=== PATIENT | female | born 1955 | race Caucasian/White ===

== ENCOUNTER 2020-10-16 11:06 | Observation (INO) ==
--- NOTE | 2020-10-16 11:12 | DR.WEAKNES ---
HPI Time Seen Time Seen by Provider: 10/16/20 11:10 HPI Comment HPI Comment: Patient presents with the complaint of slurred speech since about 10 AM today. She notes that she felt fine when she went to bed last night and when she awoke this morning. Notes that she was drinking coffee this morning and got choked and then felt that her speech was slurred. This lasted for a few minutes and then resolved spontaneously, but recurred and resolved 2 other times after. She notes that she feels that she is back to her baseline at this time. Timing Symptom Onset: Known Context Stroke Symptoms: Slurring PMH PMH Past Medical History: Hypertension Past Surgical History: Yes Surgical History: Hysterectomy, Ortho Surgery and Other Social History Do you use any recreational Drugs:: No ROS Review of Systems Constitutional: See HPI PE Vital Signs Vitals: Temperature 98.2 F Pulse Rate 98 Respiratory Rate 22 Blood Pressure 140/60 O2 Sat by Pulse Oximetry 98 General Limitations: No Limitations General Appearance: Alert and In No Apparent Distress Head Head Exam: Normal Inspection, Atraumatic and Normocephalic Eyes Eye exam: Normal Appearance, PERRL and EOMI ENT ENT Exam: Normal Exam Mouth Exam: Normal Inspection Throat Exam: Normal Inspection Neck Neck Exam: Normal Inspection, Full ROM and Trachea Midline Chest Chest Inspection: Normal Inspection and Symmetric Chest Wall Rise Respiratory Respiratory Exam: Normal Lung Sounds Bilat Respiratory Exam: Bilateral: Clear to Auscultation Cardiovascular Cardiovascular Exam: Regular Rate, Normal Rhythm and Normal Heart Sounds Abdominal Exam Abdominal Exam: Normal Inspection, Normal Bowel Sounds and Soft COURSE Reevaluation 1st: Resolved 2nd: Worsened (patient now notes that her tongue feels "heavy" again) Consultation Consultation Comments: Spoke with Dr. Keys who will admit the patient to his service. ROR Labs Reviewed Result Diagrams: 10/16/20 11:25 10/16/20 11:25 Laboratory: WBC 8.6 X10^3/uL (3.6-10.0) 10/16/20 11:25 RBC 4.36 X10^6/uL (3.5-5.4) 10/16/20 11:25 Hgb 12.7 g/dL (12.0-16.0) 10/16/20 11:25 Hct 38.9 % (36.0-47.0) 10/16/20 11:25 MCV 89.1 fL (80.0-100.0) 10/16/20 11:25 MCH 29.2 pg (27.0-34.0) 10/16/20 11:25 MCHC 32.8 g/dL (33.0-35.0) L 10/16/20 11:25 RDW 13.8 % (11.6-16.5) 10/16/20 11:25 Plt Count 263 X10^3/uL (150.0-450.0) 10/16/20 11:25 MPV 8.3 fL (7.4-11.0) 10/16/20 11:25 Neut % (Auto) 65.6 % (42.0-75.0) 10/16/20 11:25 Lymph % (Auto) 21.2 % (21.0-51.0) 10/16/20 11:25 [place] % (Auto) 8.7 % (0.0-13.0) 10/16/20 11:25 Eos % (Auto) 2.3 % (0.9-2.9) 10/16/20 11:25 Baso % (Auto) 2.2 % (0.2-1.0) H 10/16/20 11:25 Neut # (Auto) 5.7 x10^3/uL (2.2-4.8) H 10/16/20 11:25 Lymph # (Auto) 1.8 X10^3/uL (1.3-2.9) 10/16/20 11:25 [place] # (Auto) 0.8 x10^3/uL (0.3-0.8) 10/16/20 11:25 Eos # (Auto) 0.2 x10^3/uL (0.0-0.2) 10/16/20 11:25 Baso # (Auto) 0.2 X10^3/uL (0.0-0.1) H 10/16/20 11:25 Absolute Nucleated RBC 0.0 /100WBC 10/16/20 11:25 PT 12.4 SECONDS (11.8-14.3) 10/16/20 11:25 INR Target Range - 10/16/20 11:25 INR 0.95 (0.8-1.3) 10/16/20 11:25 APTT 25.7 SECONDS (22.9-36.5) 10/16/20 11:25 PTT Comment - 10/16/20 11:25 Fibrinogen 429 mg/dL (239-489) 10/16/20 11:25 Sodium 132 mmol/L (136-145) L 10/16/20 11:25 Corrected Sodium TNP 10/16/20 11:25 Potassium 4.0 mmol/L (3.5-5.1) 10/16/20 11:25 Chloride 98 mmol/L (98-107) 10/16/20 11:25 Carbon Dioxide 28.3 mmol/L (21-32) 10/16/20 11:25 BUN 15 mg/dL (7-18) 10/16/20 11:25 Creatinine 0.94 mg/dL (0.55-1.02) 10/16/20 11:25 Est GFR (MDRD) Af Amer > 60 (>60) 10/16/20 11:25 Est GFR (MDRD) Non-Af > 60 (>60) 10/16/20 11:25 Glucose 105 mg/dL (65-99) H 10/16/20 11:25 Calcium 10.0 mg/dL (8.5-10.1) 10/16/20 11:25 Corrected Calcium TNP 10/16/20 11:25 Total Bilirubin 0.30 mg/dL (0.2-1.0) 10/16/20 11:25 AST 17 Units/L (15-37) 10/16/20 11:25 ALT 27 Units/L (12-78) 10/16/20 11:25 Alkaline Phosphatase 72 Units/L (46-116) 10/16/20 11:25 Total Protein 7.1 g/dL (6.4-8.2) 10/16/20 11:25 Albumin 3.7 g/dL (3.4-5.0) 10/16/20 11:25 Globulin 3.4 g/dL (2.5-4.5) 10/16/20 11:25 Albumin/Globulin Ratio 1.1 Ratio (1.1-2.1) 10/16/20 11:25 Triglycerides 156 mg/dL (0-150) H 10/16/20 11:25 Cholesterol 149 mg/dL (0-200) 10/16/20 11:25 LDL Cholesterol, Calc 74 mg/dL (0-100) 10/16/20 11:25 HDL Cholesterol 44 mg/dL (40-60) 10/16/20 11:25 Cholesterol/HDL Ratio 3.4 (0.0-5.0) 10/16/20 11:25 Specimen Type Clean catch urine 10/16/20 12:02 Urine Color Yellow (YELLOW) 10/16/20 12:02 Urine Appearance Clear (CLEAR) 10/16/20 12:02 Urine pH 6.0 (5.0 - 8.0) 10/16/20 12:02 Ur Specific [place] 1.010 (1.000-1.030) 10/16/20 12:02 Urine Protein Negative (NEGATIVE) 10/16/20 12:02 Urine Glucose (UA) Negative (NEGATIVE) 10/16/20 12:02 Urine Ketones Negative (NEGATIVE) 10/16/20 12:02 Urine Occult Blood Negative (NEGATIVE) 10/16/20 12:02 Urine Nitrite Negative (NEGATIVE) 10/16/20 12:02 Urine Bilirubin Negative (NEGATIVE) 10/16/20 12:02 Urine Urobilinogen Normal (NORMAL) 10/16/20 12:02 Ur Leukocyte Esterase Negative (NEGATIVE) 10/16/20 12:02 SARS CoV-2 RNA Rapid WILLA Negative (NEGATIVE) 10/16/20 13:24 XRAY X-ray Results: HISTORY SLURRED SPEECH [address] without contrast COMPARISON None TECHNIQUE Axial imaging was performed from the vertex to the base of skull without intravenous contrast being administered. Sagittal and coronal reformations were generated. Automated exposure control techniques were used with this exam. FINDINGS Mild age related atrophic changes are present. The posterior fossa and supratentorial region demonstrate no evidence of intracranial hemorrhage or extracerebral fluid collections. Ventricles are symmetric in size and position with no mass effect seen. Patchy areas of low density are present in a periventricular white matter distribution, consistent with chronic small vessel ischemia. On the bone windows, no acute bony abnormality is identified. Mucosal thickening is present in the right maxillary sinus. Otherwise visualized aspect of the paranasal sinuses and mastoid air cells are clear. IMPRESSION 1. No acute intracranial abnormality is seen on this exam. 2. Mild age related atrophic change and scattered areas of chronic small vessel ischemia are incidental findings Electronically signed by: JASMIN KINCAID (Oct 16, 2020 11:28:06) EKG Rate: 90 Rhythm: NSR Opioid Opioid Risk Tool Total: 0 Total Score Risk Category: Low Risk Copyright: Andrei VILLEDA predicting aberrant behaviors Diagnosis Discharge Problem: Brain TIA
--- NOTE | 2020-10-16 11:29 | CT ---
HISTORYSLURRED SPEECH [address] without contrastCOMPARISONNoneTECHNIQUEAxial imaging was performed from the vertex to the base of skull without intravenous contrast being administered. Sagittal and coronal reformations were generated. Automated exposure control techniques were used with this exam.FINDINGSMild age related atrophic changes are present. The posterior fossa and supratentorial region demonstrate no evidence of intracranial hemorrhage or extracerebral fluid collections. Ventricles are symmetric in size and position with no mass effect seen. Patchy areas of low density are present in a periventricular white matter distribution, consistent with chronic small vessel ischemia. On the bone windows, no acute bony abnormality is identified. Mucosal thickening is present in the right maxillary sinus. Otherwise visualized aspect of the paranasal sinuses and mastoid air cells are clear.IMPRESSION1. No acute intracranial abnormality is seen on this exam.2. Mild age related atrophic change and scattered areas of chronic small vessel ischemia are incidental findingsElectronically signed by: JASMIN KINCAID (Oct 16, 2020 11:28:06)
[2020-10-16 11:38] LABS: BASOPHILS # (AUTO) 0.2 X10^3/uL (0.0-0.1); BASOPHILS % (AUTO) 2.2 % (0.2-1.0); EOSINOPHILS # (AUTO) 0.2 x10^3/uL (0.0-0.2); EOSINOPHILS % (AUTO) 2.3 % (0.9-2.9); HEMATOCRIT 38.9 % (36.0-47.0); HEMOGLOBIN 12.7 g/dL (12.0-16.0); LYMPHOCYTES # (AUTO) 1.8 X10^3/uL (1.3-2.9); LYMPHOCYTES % (AUTO) 21.2 % (21.0-51.0); MEAN CORPUSCULAR HEMOGLOBIN 29.2 pg (27.0-34.0); MEAN CORPUSCULAR HGB CONC 32.8 g/dL (33.0-35.0); MEAN CORPUSCULAR VOLUME 89.1 fL (80.0-100.0); MEAN PLATELET VOLUME 8.3 fL (7.4-11.0); MONOCYTES # (AUTO) 0.8 x10^3/uL (0.3-0.8); MONOCYTES % (AUTO) 8.7 % (0.0-13.0); NEUTROPHILS # (AUTO) 5.7 x10^3/uL (2.2-4.8); NEUTROPHILS % (AUTO) 65.6 % (42.0-75.0); PLATELET COUNT 263 X10^3/uL (150.0-450.0); RED BLOOD COUNT 4.36 X10^6/uL (3.5-5.4); RED CELL DISTRIBUTION WIDTH 13.8 % (11.6-16.5); WHITE BLOOD COUNT 8.6 X10^3/uL (3.6-10.0)
[2020-10-16 11:50] LABS: ALANINE AMINOTRANSFERASE 27 Units/L (12-78); ALBUMIN 3.7 g/dL (3.4-5.0); ALKALINE PHOSPHATASE 72 Units/L (46-116); ASPARTATE AMINO TRANSFERASE 17 Units/L (15-37); BLOOD UREA NITROGEN 15 mg/dL (7-18); CARBON DIOXIDE 28.3 mmol/L (21-32); CHLORIDE 98 mmol/L (98-107); CHOL/HDL RATIO 3.4 (0.0-5.0); CHOLESTEROL 149 mg/dL (0-200); CREATININE 0.94 mg/dL (0.55-1.02); HDL CHOLESTEROL 44 mg/dL (40-60); SODIUM 132 mmol/L (136-145); TOTAL PROTEIN 7.1 g/dL (6.4-8.2); TRIGLYCERIDES 156 mg/dL (0-150); eGFR NON BLACK RACES > 60 (>60)
[2020-10-16 12:09] LABS: BILIRUBIN,URINE NEGATIVE (NEGATIVE); BLOOD/HEMOGLOBIN,URINE NEGATIVE (NEGATIVE); GLUCOSE, URINE NEGATIVE (NEGATIVE); KETONES,URINE NEGATIVE (NEGATIVE); LEUKOCYTE ESTERASE ,URINE NEGATIVE (NEGATIVE); NITRITES,URINE NEGATIVE (NEGATIVE); PROTEIN,URINE NEGATIVE (NEGATIVE); UROBILINOGEN,URINE NORMAL (NORMAL)
[2020-10-16 12:11] LABS: APPEARANCE,URINE CLEAR (CLEAR); COLOR,URINE YELLOW (YELLOW)
[2020-10-16] MEDS ORDERED: ZAROXOLYN PO SCH (14:30)
[2020-10-16] MEDS ORDERED: LASIX PO PRN (14:30)
--- NOTE | 2020-10-16 15:11 | DR.H&P ---
H&P History & Physical for Day of: H&P Date: 10/16/20 Chief Complaint Chief Complaint: TIA Slurred speech Allergies Allergies Allergy/AdvReac Type Severity Reaction Status Date / Time codeine AdvReac Verified 10/17/20 05:52 History of Present Illness History of Present Illness: Patient is a 65 year old female past medical history Hypertension and Hyperlipidemia that presented with intermittent episodes of slurred speech that started 10 AM this morning. She denies any symptoms when she went to bed last night and when she woke up this morning. She reports drinking coffee this morning and got choked. It was then that she noticed her speech was slurred, which resolved spontaneously after a few minutes. However, she noticed it return two more times after, however resolved again while in the ED. Labs/ imaging: Wbc 8.6, Hgb 12.7, Plt 263, INR 0.95, UA negative, COVID-19 negative, Na 132, K 4.0, Cr 0.94, Glucose 105, AST 17, ALT 27, AlkP 72, Triglycerides 156, Cholesterol 149, LDL 74, HDL 44, CT head: 1. No acute intracranial abnormality is seen on this exam. 2. Mild age related atrophic change and scattered areas of chronic small vessel ischemia are incidental findings. Will admit patient for TIA and order frequent neuro checks, MRI brain, carotid U/S, and TTE. Optimize medications to decrease stroke risk. Will continue to monitor patient and follow up labs/imaging in the morning. Past Medical History Past Medical History: Dyslipidemia and Hypertension Past Surgical History Surgical History: Hysterectomy and Other Family History Family Medical History: Diabetes Mellitus and Hypertension Social History Does patient currently use any type of tobacco product: Yes Have you used tobacco products in the last 12 months: Yes Type of Tobacco Use: Cigarettes Medications Home Medications: MS Codeine [Codeine] Allergy (Mild, Verified 10/16/20 11:24) hives CONTINUE taking the following medications atorvastatin 40 mg PO QHS 10/16/20 [History] docusate sodium [Stool Softener] 100 mg PO BID PRN 10/16/20 [History] furosemide 40 mg PO QAM PRN 10/16/20 [History] ibuprofen 800 mg PO Q8H PRN 10/16/20 [History] lisinopril 10 mg PO DAILY 10/16/20 [History] metolazone 5 mg PO ONCE 10/16/20 [History] potassium chloride 10 meq PO DAILY 10/16/20 [History] pramipexole 1.5 mg PO BID 10/16/20 [History] spironolactone 25 mg PO DAILY 10/16/20 [History] Labs Result Diagrams: 10/17/20 05:45 10/17/20 05:45 Labs: Laboratory WBC 8.6 X10^3/uL (3.6-10.0) 10/16/20 11:25 RBC 4.36 X10^6/uL (3.5-5.4) 10/16/20 11:25 Hgb 12.7 g/dL (12.0-16.0) 10/16/20 11:25 Hct 38.9 % (36.0-47.0) 10/16/20 11:25 MCV 89.1 fL (80.0-100.0) 10/16/20 11:25 MCH 29.2 pg (27.0-34.0) 10/16/20 11:25 MCHC 32.8 g/dL (33.0-35.0) L 10/16/20 11:25 RDW 13.8 % (11.6-16.5) 10/16/20 11:25 Plt Count 263 X10^3/uL (150.0-450.0) 10/16/20 11:25 MPV 8.3 fL (7.4-11.0) 10/16/20 11:25 Neut % (Auto) 65.6 % (42.0-75.0) 10/16/20 11:25 Lymph % (Auto) 21.2 % (21.0-51.0) 10/16/20 11:25 [place] % (Auto) 8.7 % (0.0-13.0) 10/16/20 11:25 Eos % (Auto) 2.3 % (0.9-2.9) 10/16/20 11:25 Baso % (Auto) 2.2 % (0.2-1.0) H 10/16/20 11:25 Neut # (Auto) 5.7 x10^3/uL (2.2-4.8) H 10/16/20 11:25 Lymph # (Auto) 1.8 X10^3/uL (1.3-2.9) 10/16/20 11:25 [place] # (Auto) 0.8 x10^3/uL (0.3-0.8) 10/16/20 11:25 Eos # (Auto) 0.2 x10^3/uL (0.0-0.2) 10/16/20 11:25 Baso # (Auto) 0.2 X10^3/uL (0.0-0.1) H 10/16/20 11:25 Absolute Nucleated RBC 0.0 /100WBC 10/16/20 11:25 PT 12.4 SECONDS (11.8-14.3) 10/16/20 11:25 INR Target Range - 10/16/20 11:25 INR 0.95 (0.8-1.3) 10/16/20 11:25 APTT 25.7 SECONDS (22.9-36.5) 10/16/20 11:25 PTT Comment - 10/16/20 11:25 Fibrinogen 429 mg/dL (239-489) 10/16/20 11:25 Sodium 132 mmol/L (136-145) L 10/16/20 11:25 Corrected Sodium TNP 10/16/20 11:25 Potassium 4.0 mmol/L (3.5-5.1) 10/16/20 11:25 Chloride 98 mmol/L (98-107) 10/16/20 11:25 Carbon Dioxide 28.3 mmol/L (21-32) 10/16/20 11:25 BUN 15 mg/dL (7-18) 10/16/20 11:25 Creatinine 0.94 mg/dL (0.55-1.02) 10/16/20 11:25 Est GFR (MDRD) Af Amer > 60 (>60) 10/16/20 11:25 Est GFR (MDRD) Non-Af > 60 (>60) 10/16/20 11:25 Glucose 105 mg/dL (65-99) H 10/16/20 11:25 Calcium 10.0 mg/dL (8.5-10.1) 10/16/20 11:25 Corrected Calcium TNP 10/16/20 11:25 Total Bilirubin 0.30 mg/dL (0.2-1.0) 10/16/20 11:25 AST 17 Units/L (15-37) 10/16/20 11:25 ALT 27 Units/L (12-78) 10/16/20 11:25 Alkaline Phosphatase 72 Units/L (46-116) 10/16/20 11:25 Total Protein 7.1 g/dL (6.4-8.2) 10/16/20 11:25 Albumin 3.7 g/dL (3.4-5.0) 10/16/20 11:25 Globulin 3.4 g/dL (2.5-4.5) 10/16/20 11:25 Albumin/Globulin Ratio 1.1 Ratio (1.1-2.1) 10/16/20 11:25 Triglycerides 156 mg/dL (0-150) H 10/16/20 11:25 Cholesterol 149 mg/dL (0-200) 10/16/20 11:25 LDL Cholesterol, Calc 74 mg/dL (0-100) 10/16/20 11:25 HDL Cholesterol 44 mg/dL (40-60) 10/16/20 11:25 Cholesterol/HDL Ratio 3.4 (0.0-5.0) 10/16/20 11:25 Specimen Type Clean catch urine 10/16/20 12:02 Urine Color Yellow (YELLOW) 10/16/20 12:02 Urine Appearance Clear (CLEAR) 10/16/20 12:02 Urine pH 6.0 (5.0 - 8.0) 10/16/20 12:02 Ur Specific [place] 1.010 (1.000-1.030) 10/16/20 12:02 Urine Protein Negative (NEGATIVE) 10/16/20 12:02 Urine Glucose (UA) Negative (NEGATIVE) 10/16/20 12:02 Urine Ketones Negative (NEGATIVE) 10/16/20 12:02 Urine Occult Blood Negative (NEGATIVE) 10/16/20 12:02 Urine Nitrite Negative (NEGATIVE) 10/16/20 12:02 Urine Bilirubin Negative (NEGATIVE) 10/16/20 12:02 Urine Urobilinogen Normal (NORMAL) 10/16/20 12:02 Ur Leukocyte Esterase Negative (NEGATIVE) 10/16/20 12:02 SARS CoV-2 RNA Rapid WILLA Negative (NEGATIVE) 10/16/20 13:24 Review of Systems Constitutional: No Symptoms Reported Eyes: No Symptoms Reported ENT: No Symptoms Reported Respiratory: No Symptoms Reported Cardiovascular: No Symptoms Reported Gastrointestinal: No Symptoms Reported Genitourinary: No Symptoms Reported Musculoskeletal: No Symptoms Reported Skin: No Symptoms Reported Neurological: Change in Speech Physical Exam Vital Signs: Temperature 97.6 F Pulse Rate 96 Respiratory Rate 20 Blood Pressure 112/53 O2 Sat by Pulse Oximetry 98 Oriented: Normal Eyes: Normal Ear: Normal Nose: Normal Throat: Normal Respiratory: Clear Throughout Cardiovascular: Normal : Normal Auscultation: Bowel Sounds: Normal Palpation: Normal Tenderness: Normal Skin: Normal Musculoskeletal: Normal Psychiatric: Normal Mood Description: Calm and Appropriate Affect: Normal Speech Pattern: Clear and Appropriate Assessment/Plan (1) Brain TIA: Status: Acute Plan: Neuro checks F/u MRI brain, Carotid U/S, TTE Review H&P Reviewed: Yes Patient was examined?: Yes
--- NOTE | 2020-10-16 16:07 | MRI ---
HISTORYTIA; 19CC MULTIHANCESTUDYBRAIN W W/O CONCOMPARISONNoneTECHNIQUEMultiplanar multi sequences images through the brain were performed without intravenous contrast 19 cc of MultiHance was administered intravenously.FINDINGSThe ventricles are normal in size and symmetric. There is no evidence of an acute infarct. There are no focal areas of restricted diffusion. There is normal midline anatomy. No sellar masses. The cervicocranial junction is unremarkable. No nasopharyngeal masses. There are small mucous retention cysts in the maxillary sinuses.The main arterial and venous flow voids are present. The mastoid cells are clear. The temporomandibular condyles are intact. There is no abnormal intraparenchymal susceptibility artifact. No abnormal signal in the calvarium.FLAIR images demonstrate multiple scattered areas of high signal in the subcortical white matter more prominent in the left frontal lobe along the convexity. There is also mild patchy periventricular areas of high signal. After the administration of contrast. There is no evidence of abnormal intraparenchymal or leptomeningeal enhancement. There is symmetry of the cavernous sinus. No orbital masses. No abnormal signal in the brainstem or in the cerebellum.IMPRESSIONNo evidence of acute intracranial abnormalities. No acute infarctMild periventricular with multiple scattered subcortical areas of high signal in the white matter without evidence of abnormal enhancementDifferential include: Small vessel disease, vasculitis, Lyme disease, demyelinization is not excluded. Clinical correlation is recommended.Small mucous retention cysts in the maxillary sinuses.Electronically signed by: Carolyn June (Oct 16, 2020 16:05:25)
--- NOTE | 2020-10-16 16:59 | VAS ---
HISTORYacute slurred speechSTUDYCAROTID USCOMPARISONNone and no worksheet.TECHNIQUEMultiple webster scale and color flow Doppler images of the right and left carotid arterial system were obtained. The vertebral arterial system was evaluated as well.FINDINGSNormal color flow Doppler is seen throughout the right and left carotid arterial system on the left waveforms are normal peak systolic velocities are in the normal range maximal 76 cm/second in the distal left ICA. On the Doppler images no high-grade stenoses are observed. Antegrade flow is seen in the left vertebral artery.On the right on images and 2D images no significant plaquing or stenoses are observed. Waveforms are normal. Peak systolic velocities are in the normal range maximal 90 cm/second in the distal right ICA. Antegrade flow is seen in the right vertebral artery.. No hemodynamically significant stenosis is seen based on velocity criteria.IMPRESSIONNo hemodynamically significant stenosis identified by real-time scanning i.e. images waveforms peak systolic velocities and systolic velocity ratios. Antegrade flow is seen in both vertebral arteries.Electronically signed by: JACKIE AGUILAR (Oct 16, 2020 16:58:18)
[2020-10-16 18:07] VITALS: BMI 31.6
[2020-10-16] MEDS: MIRAPEX TAB 1 MG PO SCH (21:00)
[2020-10-16] MEDS: LIPITOR TAB 80 MG PO SCH (21:00)
[2020-10-16] MEDS ORDERED: LIPITOR TAB 20 MG PO SCH (21:00)
[2020-10-17 06:26] LABS: BASOPHILS # (AUTO) 0.1 X10^3/uL (0.0-0.1); EOSINOPHILS # (AUTO) 0.2 x10^3/uL (0.0-0.2); EOSINOPHILS % (AUTO) 2.9 % (0.9-2.9); HEMATOCRIT 35.6 % (36.0-47.0); LYMPHOCYTES # (AUTO) 1.6 X10^3/uL (1.3-2.9); LYMPHOCYTES % (AUTO) 22.8 % (21.0-51.0); MEAN CORPUSCULAR HEMOGLOBIN 29.6 pg (27.0-34.0); MEAN CORPUSCULAR HGB CONC 33.6 g/dL (33.0-35.0); MEAN PLATELET VOLUME 8.4 fL (7.4-11.0); MONOCYTES # (AUTO) 0.6 x10^3/uL (0.3-0.8); MONOCYTES % (AUTO) 8.1 % (0.0-13.0); NEUTROPHILS # (AUTO) 4.7 x10^3/uL (2.2-4.8); NEUTROPHILS % (AUTO) 65.2 % (42.0-75.0); PLATELET COUNT 228 X10^3/uL (150.0-450.0); RED BLOOD COUNT 4.04 X10^6/uL (3.5-5.4); RED CELL DISTRIBUTION WIDTH 13.6 % (11.6-16.5); WHITE BLOOD COUNT 7.2 X10^3/uL (3.6-10.0)
[2020-10-17 06:46] LABS: ALANINE AMINOTRANSFERASE 22 Units/L (12-78); ALBUMIN 3.3 g/dL (3.4-5.0); ALKALINE PHOSPHATASE 65 Units/L (46-116); ASPARTATE AMINO TRANSFERASE 16 Units/L (15-37); BLOOD UREA NITROGEN 13 mg/dL (7-18); CALCIUM 9.3 mg/dL (8.5-10.1); CARBON DIOXIDE 25.1 mmol/L (21-32); CHLORIDE 101 mmol/L (98-107); COR CA(FOR HYPOALB) 9.9 mg/dL (8.5-10.1); COR NA(FOR HYPERGLY) 138 mmol/L (136-145); CREATININE 0.92 mg/dL (0.55-1.02); SODIUM 136 mmol/L (136-145); TOTAL PROTEIN 6.4 g/dL (6.4-8.2); eGFR NON BLACK RACES > 60 (>60)
[2020-10-17] MEDS ORDERED: KLOR-CON PO PRN (06:49)
[2020-10-17] MEDS ORDERED: POTASSIUM CHL 60 MEQ/NS 0.45% 500 ML IV PRN (06:49)
[2020-10-17] MEDS ORDERED: POTASSIUM CHLORIDE LIQ 20 MEQ UDC PO PRN (06:49)
[2020-10-17] MEDS ORDERED: POTASSIUM CHL 40 MEQ/NS 0.45% 500 ML IV PRN (06:49)
[2020-10-17] MEDS ORDERED: K-RIDER 10 MEQ/NS 100 ML 10 MEQ/100 ML BAG IV PRN (06:49)
[2020-10-17] MEDS ORDERED: MICRO K EXTEN CAP 10 MEQ PO PRN (06:49)
[2020-10-17] MEDS ORDERED: K-DUR TAB 20 MEQ PO PRN (06:49)
[2020-10-17 06:52] LABS: BAND NEUTROPHILS % 2 % (0-10); PLATELET MORPHOLOGY COMMENT NORMAL (NORMAL)
[2020-10-17] MEDS: ZESTRIL TAB 5 MG PO SCH (08:15)
[2020-10-17] MEDS: ALDACTONE TAB 25 MG PO SCH (08:15)
[2020-10-17] MEDS: MIRAPEX TAB 1 MG PO SCH ×2 (08:15→20:59)
--- NOTE | 2020-10-17 08:36 | PCM.PROG ---
Progress Note Progress Note for Day of Date of Exam: 10/17/20 Subjective Subjective: Patient is a 65 year old female past medical history Hypertension and Hyperlipidemia admitted for TIA. This morning she reports still having some intermittent episodes of slurred speech. No other concerns. Labs/ imaging: Wbc 7.2, Hgb 12, Plt 228, ESR 18, CRP 1.40, Na 136, K 3.4, Cr 0.92, Glucose 165, AST 16, ALT 22, AlkP 65, Total bilirubin 0.20, TSH:2.94. Yesterday MRI revealed: No evidence of acute intracranial abnormalities. No acute infarct. Mild periventricular with multiple scattered subcortical areas of high signal in the white matter without evidence of abnormal enhancement. Differential include: Small vessel disease, vasculitis, Lyme disease, demyelinization is not excluded. Clinical correlation is recommended. Small mucous retention cysts in the maxillary sinuses. Carotid U/S: No hemodynamically significant stenosis identified by real-time scanning i.e. images waveforms peak systolic velocities and systolic velocity ratios. Antegrade flow is seen in both vertebral arteries. Echo EF of 57%. Discussed with patient results of imaging including no evidence of acute brain infarct or carotid artery stenosis. There appears to be some scattered areas of abnormal enhancement on MRI that will need to be followed up with neurology outpatient. Case management to set up referral. On exam patient with no focal deficits. Will monitor today with neuro checks, medications opti mized to decrease stroke risk. Will give IV solumedrol if inflammatory condition is involved, otherwise continue with current treatment plan. Continue to monitor and follow up labs/imaging in the morning. Past Medical Family Social History Past Med/Fam/Surg Hx: No changes since H&P Allergies: Allergies codeine Adverse Reaction (Verified 10/17/20 05:52) Review of Systems ROS: No change since H&P Vital Signs and I&O's Vital Signs: Temperature 98.0 F Pulse Rate [Bilateral Radial] 98 Pulse Rate 96 Respiratory Rate 18 Blood Pressure [Right Arm] 136/87 Blood Pressure 112/53 O2 Sat by Pulse Oximetry 93 Intake and Output: Intake & Output 10/14/20 10/15/20 10/16/20 10/17/20 23:59 23:59 23:59 23:59 Intake Total 890 / 890 250 / 250 Balance 890 / 890 250 / 250 Physical Exam Oriented: Normal Eyes: Normal Ear: Normal Nose: Normal Throat: Normal Respiratory: Normal Cardiovascular: Normal : Normal Auscultation: Bowel Sounds: Normal Tenderness: Normal Skin: Normal Musculoskeletal: Normal Psychiatric: Normal Mood Description: Calm Affect: Normal Speech Pattern: Clear Laboratory and Diagnostics Result Diagrams: 10/17/20 05:45 10/17/20 05:45 Labs: Laboratory WBC 7.2 X10^3/uL (3.6-10.0) 10/17/20 05:45 RBC 4.04 X10^6/uL (3.5-5.4) 10/17/20 05:45 Hgb 12.0 g/dL (12.0-16.0) 10/17/20 05:45 Hct 35.6 % (36.0-47.0) L 10/17/20 05:45 MCV 88.0 fL (80.0-100.0) 10/17/20 05:45 MCH 29.6 pg (27.0-34.0) 10/17/20 05:45 MCHC 33.6 g/dL (33.0-35.0) 10/17/20 05:45 RDW 13.6 % (11.6-16.5) 10/17/20 05:45 Plt Count 228 X10^3/uL (150.0-450.0) 10/17/20 05:45 Plt Count Comment Adequate (ADEQUATE) 10/17/20 05:45 MPV 8.4 fL (7.4-11.0) 10/17/20 05:45 Neut % (Auto) 65.2 % (42.0-75.0) 10/17/20 05:45 Lymph % (Auto) 22.8 % (21.0-51.0) 10/17/20 05:45 [place] % (Auto) 8.1 % (0.0-13.0) 10/17/20 05:45 Eos % (Auto) 2.9 % (0.9-2.9) 10/17/20 05:45 Baso % (Auto) 1.0 % (0.2-1.0) 10/17/20 05:45 Neut # (Auto) 4.7 x10^3/uL (2.2-4.8) 10/17/20 05:45 Lymph # (Auto) 1.6 X10^3/uL (1.3-2.9) 10/17/20 05:45 [place] # (Auto) 0.6 x10^3/uL (0.3-0.8) 10/17/20 05:45 Eos # (Auto) 0.2 x10^3/uL (0.0-0.2) 10/17/20 05:45 Baso # (Auto) 0.1 X10^3/uL (0.0-0.1) 10/17/20 05:45 Absolute Nucleated RBC 0.0 /100WBC 10/17/20 05:45 Total Counted 100 10/17/20 05:45 Neutrophils % (Manual) 70 % (39-76) 10/17/20 05:45 Band Neutrophils % 2 % (0-10) 10/17/20 05:45 Lymphocytes % (Manual) 17 % (13-43) 10/17/20 05:45 Monocytes % (Manual) 9 % (4-9) 10/17/20 05:45 Eosinophils % (Manual) 2 % (0-6) 10/17/20 05:45 Plt Morphology Comment Normal (NORMAL) 10/17/20 05:45 RBC Morphology Normal (NORMAL) 10/17/20 05:45 ESR 18 MM/HOUR (0-20) 10/16/20 16:44 PT 12.4 SECONDS (11.8-14.3) 10/16/20 11:25 INR Target Range - 10/16/20 11:25 INR 0.95 (0.8-1.3) 10/16/20 11:25 APTT 25.7 SECONDS (22.9-36.5) 10/16/20 11:25 PTT Comment - 10/16/20 11:25 Fibrinogen 429 mg/dL (239-489) 10/16/20 11:25 Sodium 136 mmol/L (136-145) 10/17/20 05:45 Corrected Sodium 138 mmol/L (136-145) 10/17/20 05:45 Potassium 3.4 mmol/L (3.5-5.1) L 10/17/20 05:45 Chloride 101 mmol/L (98-107) 10/17/20 05:45 Carbon Dioxide 25.1 mmol/L (21-32) 10/17/20 05:45 BUN 13 mg/dL (7-18) 10/17/20 05:45 Creatinine 0.92 mg/dL (0.55-1.02) 10/17/20 05:45 Est GFR (MDRD) Af Amer > 60 (>60) 10/17/20 05:45 Est GFR (MDRD) Non-Af > 60 (>60) 10/17/20 05:45 Glucose 165 mg/dL (65-99) H 10/17/20 05:45 Calcium 9.3 mg/dL (8.5-10.1) 10/17/20 05:45 Corrected Calcium 9.9 mg/dL (8.5-10.1) 10/17/20 05:45 Magnesium 2.0 mg/dL (1.7-2.9) 10/17/20 05:45 Total Bilirubin 0.20 mg/dL (0.2-1.0) 10/17/20 05:45 AST 16 Units/L (15-37) 10/17/20 05:45 ALT 22 Units/L (12-78) 10/17/20 05:45 Alkaline Phosphatase 65 Units/L (46-116) 10/17/20 05:45 C-Reactive Protein 1.40 mg/L (0-3.0) 10/16/20 16:44 Total Protein 6.4 g/dL (6.4-8.2) 10/17/20 05:45 Albumin 3.3 g/dL (3.4-5.0) L 10/17/20 05:45 Globulin 3.1 g/dL (2.5-4.5) 10/17/20 05:45 Albumin/Globulin Ratio 1.1 Ratio (1.1-2.1) 10/17/20 05:45 Triglycerides 156 mg/dL (0-150) H 10/16/20 11:25 Cholesterol 149 mg/dL (0-200) 10/16/20 11:25 LDL Cholesterol, Calc 74 mg/dL (0-100) 10/16/20 11:25 HDL Cholesterol 44 mg/dL (40-60) 10/16/20 11:25 Cholesterol/HDL Ratio 3.4 (0.0-5.0) 10/16/20 11:25 Specimen Type Clean catch urine 10/16/20 12:02 Urine Color Yellow (YELLOW) 10/16/20 12:02 Urine Appearance Clear (CLEAR) 10/16/20 12:02 Urine pH 6.0 (5.0 - 8.0) 10/16/20 12:02 Ur Specific [place] 1.010 (1.000-1.030) 10/16/20 12:02 Urine Protein Negative (NEGATIVE) 10/16/20 12:02 Urine Glucose (UA) Negative (NEGATIVE) 10/16/20 12:02 Urine Ketones Negative (NEGATIVE) 10/16/20 12:02 Urine Occult Blood Negative (NEGATIVE) 10/16/20 12:02 Urine Nitrite Negative (NEGATIVE) 10/16/20 12:02 Urine Bilirubin Negative (NEGATIVE) 10/16/20 12:02 Urine Urobilinogen Normal (NORMAL) 10/16/20 12:02 Ur Leukocyte Esterase Negative (NEGATIVE) 10/16/20 12:02 SARS CoV-2 RNA Rapid WILLA Negative (NEGATIVE) 10/16/20 13:24 Plan (1) Brain TIA: Status: Acute Plan: Neuro checks CT and MRI negative for acute abnormalities
[2020-10-17] MEDS: SOLU-Medrol 125 MG VIAL IVP SCH ×2 (09:43→15:08)
[2020-10-17] MEDS: PEPCID TAB 20 MG PO SCH ×2 (15:08→21:00)
[2020-10-17] MEDS: ASPIRIN EC 81 MG PO SCH (15:08)
[2020-10-17] MEDS ORDERED: HumuLIN R SUBCUT PRN (16:45)
[2020-10-17] MEDS: SNACK - Diabetic Appropriate PO SCH (19:37)
[2020-10-17] MEDS: LIPITOR TAB 80 MG PO SCH (21:00)
[2020-10-18 06:09] LABS: BASOPHILS % (AUTO) 0.1 % (0.2-1.0); HEMATOCRIT 36.3 % (36.0-47.0); HEMOGLOBIN 11.8 g/dL (12.0-16.0); LYMPHOCYTES # (AUTO) 0.9 X10^3/uL (1.3-2.9); LYMPHOCYTES % (AUTO) 5.3 % (21.0-51.0); MEAN CORPUSCULAR HGB CONC 32.5 g/dL (33.0-35.0); MEAN CORPUSCULAR VOLUME 89.4 fL (80.0-100.0); MEAN PLATELET VOLUME 8.5 fL (7.4-11.0); MONOCYTES # (AUTO) 0.9 x10^3/uL (0.3-0.8); MONOCYTES % (AUTO) 5.2 % (0.0-13.0); NEUTROPHILS # (AUTO) 15.7 x10^3/uL (2.2-4.8); NEUTROPHILS % (AUTO) 89.4 % (42.0-75.0); PLATELET COUNT 256 X10^3/uL (150.0-450.0); RED BLOOD COUNT 4.06 X10^6/uL (3.5-5.4); RED CELL DISTRIBUTION WIDTH 13.7 % (11.6-16.5); WHITE BLOOD COUNT 17.6 X10^3/uL (3.6-10.0)
[2020-10-18 06:24] LABS: ALANINE AMINOTRANSFERASE 27 Units/L (12-78); ALBUMIN 3.2 g/dL (3.4-5.0); ALKALINE PHOSPHATASE 67 Units/L (46-116); ASPARTATE AMINO TRANSFERASE 11 Units/L (15-37); BLOOD UREA NITROGEN 13 mg/dL (7-18); CALCIUM 9.3 mg/dL (8.5-10.1); CARBON DIOXIDE 25.5 mmol/L (21-32); CHLORIDE 104 mmol/L (98-107); COR CA(FOR HYPOALB) 9.9 mg/dL (8.5-10.1); COR NA(FOR HYPERGLY) 138 mmol/L (136-145); CREATININE 0.93 mg/dL (0.55-1.02); SODIUM 137 mmol/L (136-145); TOTAL PROTEIN 6.4 g/dL (6.4-8.2); eGFR NON BLACK RACES > 60 (>60)
[2020-10-18] MEDS: ALDACTONE TAB 25 MG PO SCH (08:34)
[2020-10-18] MEDS: MIRAPEX TAB 1 MG PO SCH ×2 (08:35→20:26)
[2020-10-18] MEDS: ASPIRIN EC 81 MG PO SCH (08:35)
[2020-10-18] MEDS: PEPCID TAB 20 MG PO SCH ×2 (08:36→20:27)
[2020-10-18] MEDS: ZESTRIL TAB 5 MG PO SCH (08:36)
--- NOTE | 2020-10-18 10:05 | W.DIS.FURT ---
Summary of Discharge Discharge Summary of Date Date of Exam: 10/18/20 Admission Date Date of Admission: 10/16/20 Admission Diagnosis Patient Problems (Updated 10/16/20 @ 13:28 by Antonella Sparks) Brain TIA (Acute) G45.9 Hospital Course: Pt is a 65 year old female past medical history Hypertension and Hyperlipidemia admitted for TIA on 10/16. On that morning she was drinking coffee and choked, then noticed having some slurred speech. When she got to the ED symptoms had resolved and CT head negative. Then throughout the day she continued to have intermittent slurring of speech. She had MRI that revealed: No evidence of acute intracranial abnormalities. No acute infarct. Mild periventricular with multiple scattered subcortical areas of high signal in the white matter without evidence of abnormal enhancement. Carotid U/S: No hemodynamically significant stenosis. Echo EF of 57%. However, she continues to have slurred speech this morning, as well deficits with coordination of her left arm and hand. Discussed with patient will need to transfer due to continued neurological symptoms for neurological evaluation. [facility]. Vitals and labs wnl, except for leukocytosis this morning that is steroid induced after receiving solumedrol yesterday. Otherwise no fevers, chills, or other signs of infection. Pt in stable condition to be transferred to higher level of care facility. Vital Signs: Vital Signs (72 hours) 10/16/20 11:12 10/16/20 11:14 10/16/20 11:20 Temperature 98.2 F Pulse Rate 99 H 96 H Pulse Rate [Bilateral Radial] Respiratory Rate 31 H 24 Blood Pressure 116/60 Blood Pressure [Right Arm] O2 Sat by Pulse Oximetry 95 95 94 L 10/16/20 11:21 10/16/20 11:31 10/16/20 11:45 Temperature Pulse Rate 94 H 94 H Pulse Rate [Bilateral Radial] Respiratory Rate 25 H 26 H Blood Pressure 140/60 Blood Pressure [Right Arm] O2 Sat by Pulse Oximetry 94 L 10/16/20 12:15 10/16/20 13:00 10/16/20 14:00 Temperature 97.6 F Pulse Rate 90 98 H 96 H Pulse Rate [Bilateral Radial] Respiratory Rate 16 22 20 Blood Pressure 140/62 140/60 112/53 Blood Pressure [Right Arm] O2 Sat by Pulse Oximetry 96 98 10/16/20 15:30 10/16/20 20:00 10/17/20 00:00 Temperature 97.7 F 97.8 F 97.9 F Pulse Rate Pulse Rate [Bilateral Radial] 97 H 92 H 93 H Respiratory Rate 20 20 20 Blood Pressure Blood Pressure [Right Arm] 145/79 134/74 123/67 O2 Sat by Pulse Oximetry 97 95 92 L 10/17/20 04:00 10/17/20 07:58 10/17/20 11:26 Temperature 98.1 F 98.0 F 97.9 F Pulse Rate Pulse Rate [Bilateral Radial] 101 H 98 H 101 H Respiratory Rate 20 18 22 Blood Pressure Blood Pressure [Right Arm] 123/65 136/87 127/75 O2 Sat by Pulse Oximetry 92 L 93 L 93 L 10/17/20 15:57 10/17/20 20:00 10/18/20 00:00 Temperature 98.0 F 98.2 F 97.6 F Pulse Rate Pulse Rate [Bilateral Radial] 103 H 109 H 96 H Respiratory Rate 18 18 20 Blood Pressure Blood Pressure [Right Arm] 116/71 118/64 106/60 O2 Sat by Pulse Oximetry 95 94 L 95 10/18/20 04:00 10/18/20 08:00 Temperature 98.2 F 97.7 F Pulse Rate Pulse Rate [Bilateral Radial] 102 H 102 H Respiratory Rate 28 H 20 Blood Pressure Blood Pressure [Right Arm] 114/66 134/62 O2 Sat by Pulse Oximetry 93 L 96 Labs: Laboratory Last Values WBC 17.6 X10^3/uL (3.6-10.0) H D 10/18/20 05:25 RBC 4.06 X10^6/uL (3.5-5.4) 10/18/20 05:25 Hgb 11.8 g/dL (12.0-16.0) L 10/18/20 05:25 Hct 36.3 % (36.0-47.0) 10/18/20 05:25 MCV 89.4 fL (80.0-100.0) 10/18/20 05:25 MCH 29.0 pg (27.0-34.0) 10/18/20 05:25 MCHC 32.5 g/dL (33.0-35.0) L 10/18/20 05:25 RDW 13.7 % (11.6-16.5) 10/18/20 05:25 Plt Count 256 X10^3/uL (150.0-450.0) 10/18/20 05:25 Plt Count Comment Adequate (ADEQUATE) 10/17/20 05:45 MPV 8.5 fL (7.4-11.0) 10/18/20 05:25 Neut % (Auto) 89.4 % (42.0-75.0) H 10/18/20 05:25 Lymph % (Auto) 5.3 % (21.0-51.0) L 10/18/20 05:25 [place] % (Auto) 5.2 % (0.0-13.0) 10/18/20 05:25 Eos % (Auto) 0.0 % (0.9-2.9) L 10/18/20 05:25 Baso % (Auto) 0.1 % (0.2-1.0) L 10/18/20 05:25 Neut # (Auto) 15.7 x10^3/uL (2.2-4.8) H 10/18/20 05:25 Lymph # (Auto) 0.9 X10^3/uL (1.3-2.9) L 10/18/20 05:25 [place] # (Auto) 0.9 x10^3/uL (0.3-0.8) H 10/18/20 05:25 Eos # (Auto) 0.0 x10^3/uL (0.0-0.2) 10/18/20 05:25 Baso # (Auto) 0.0 X10^3/uL (0.0-0.1) 10/18/20 05:25 Absolute Nucleated RBC 0.0 /100WBC 10/18/20 05:25 Total Counted 100 10/17/20 05:45 Neutrophils % (Manual) 70 % (39-76) 10/17/20 05:45 Band Neutrophils % 2 % (0-10) 10/17/20 05:45 Lymphocytes % (Manual) 17 % (13-43) 10/17/20 05:45 Monocytes % (Manual) 9 % (4-9) 10/17/20 05:45 Eosinophils % (Manual) 2 % (0-6) 10/17/20 05:45 Plt Morphology Comment Normal (NORMAL) 10/17/20 05:45 RBC Morphology Normal (NORMAL) 10/17/20 05:45 ESR 18 MM/HOUR (0-20) 10/16/20 16:44 PT 12.4 SECONDS (11.8-14.3) 10/16/20 11:25 INR Target Range - 10/16/20 11:25 INR 0.95 (0.8-1.3) 10/16/20 11:25 APTT 25.7 SECONDS (22.9-36.5) 10/16/20 11:25 PTT Comment - 10/16/20 11:25 Fibrinogen 429 mg/dL (239-489) 10/16/20 11:25 Sodium 137 mmol/L (136-145) 10/18/20 05:25 Corrected Sodium 138 mmol/L (136-145) 10/18/20 05:25 Potassium 4.1 mmol/L (3.5-5.1) 10/18/20 05:25 Chloride 104 mmol/L (98-107) 10/18/20 05:25 Carbon Dioxide 25.5 mmol/L (21-32) 10/18/20 05:25 BUN 13 mg/dL (7-18) 10/18/20 05:25 Creatinine 0.93 mg/dL (0.55-1.02) 10/18/20 05:25 Est GFR (MDRD) Af Amer > 60 (>60) 10/18/20 05:25 Est GFR (MDRD) Non-Af > 60 (>60) 10/18/20 05:25 Glucose 149 mg/dL (65-99) H 10/18/20 05:25 POC Glucose (mg/dL) 145 mg/dL (65-99) H 10/18/20 05:14 Calcium 9.3 mg/dL (8.5-10.1) 10/18/20 05:25 Corrected Calcium 9.9 mg/dL (8.5-10.1) 10/18/20 05:25 Magnesium 2.0 mg/dL (1.7-2.9) 10/17/20 05:45 Total Bilirubin 0.20 mg/dL (0.2-1.0) 10/18/20 05:25 AST 11 Units/L (15-37) L 10/18/20 05:25 ALT 27 Units/L (12-78) 10/18/20 05:25 Alkaline Phosphatase 67 Units/L (46-116) 10/18/20 05:25 C-Reactive Protein 1.40 mg/L (0-3.0) 10/16/20 16:44 Total Protein 6.4 g/dL (6.4-8.2) 10/18/20 05:25 Albumin 3.2 g/dL (3.4-5.0) L 10/18/20 05:25 Globulin 3.2 g/dL (2.5-4.5) 10/18/20 05:25 Albumin/Globulin Ratio 1.0 Ratio (1.1-2.1) L 10/18/20 05:25 Triglycerides 156 mg/dL (0-150) H 10/16/20 11:25 Cholesterol 149 mg/dL (0-200) 10/16/20 11:25 LDL Cholesterol, Calc 74 mg/dL (0-100) 10/16/20 11:25 HDL Cholesterol 44 mg/dL (40-60) 10/16/20 11:25 Cholesterol/HDL Ratio 3.4 (0.0-5.0) 10/16/20 11:25 TSH 3rd Generation 2.941 uIU/mL (0.358-3.74) 10/17/20 05:45 Specimen Type Clean catch urine 10/16/20 12:02 Urine Color Yellow (YELLOW) 10/16/20 12:02 Urine Appearance Clear (CLEAR) 10/16/20 12:02 Urine pH 6.0 (5.0 - 8.0) 10/16/20 12:02 Ur Specific [place] 1.010 (1.000-1.030) 10/16/20 12:02 Urine Protein Negative (NEGATIVE) 10/16/20 12:02 Urine Glucose (UA) Negative (NEGATIVE) 10/16/20 12:02 Urine Ketones Negative (NEGATIVE) 10/16/20 12:02 Urine Occult Blood Negative (NEGATIVE) 10/16/20 12:02 Urine Nitrite Negative (NEGATIVE) 10/16/20 12:02 Urine Bilirubin Negative (NEGATIVE) 10/16/20 12:02 Urine Urobilinogen Normal (NORMAL) 10/16/20 12:02 Ur Leukocyte Esterase Negative (NEGATIVE) 10/16/20 12:02 SARS CoV-2 RNA Rapid WILLA Negative (NEGATIVE) 10/16/20 13:24 Reason For Visit: TIA Discharge Date Discharge Date: 10/18/20 Discharge Diagnosis All Active Problems (Updated 10/16/20 @ 13:28 by Antonella Sparks) Constipation by delayed colonic transit (Acute) Brain TIA (Acute) Plan of Treatment: Continue with present treatment and follow up plan. Pt is to keep follow up appointment as instructed and take medications as ordered. Discharge Medications Discharge Medications: codeine Adverse Reaction (Verified 10/17/20 05:52) CONTINUE taking the following medications atorvastatin 40 mg PO QHS 10/16/20 [History] docusate sodium [Stool Softener] 100 mg PO BID PRN 10/16/20 [History] furosemide 40 mg PO QAM PRN 10/16/20 [History] ibuprofen 800 mg PO Q8H PRN 10/16/20 [History] lisinopril 10 mg PO DAILY 10/16/20 [History] metolazone 5 mg PO ONCE 10/16/20 [History] potassium chloride 10 meq PO DAILY 10/16/20 [History] pramipexole 1.5 mg PO BID 10/16/20 [History] spironolactone 25 mg PO DAILY 10/16/20 [History] Discharge Disposition Discharge Disposition: Transfer to [facility] Discharge Condition: Stable Discharge Plan Discharge Plan Hospital Course: Pt is a 65 year old female past medical history Hypertension and Hyperlipidemia admitted for TIA on 10/16. On that morning she was drinking coffee and choked, then noticed having some slurred speech. When she got to the ED symptoms had resolved and CT head negative. Then throughout the day she continued to have intermittent slurring of speech. She had MRI that revealed: No evidence of acute intracranial abnormalities. No acute infarct. Mild periventricular with multiple scattered subcortical areas of high signal in the white matter without evidence of abnormal enhancement. Carotid U/S: No hemodynamically significant stenosis. Echo EF of 57%. However, she continues to have slurred speech this morning, as well deficits with coordination of her left arm and hand. Discussed with patient will need to transfer due to continued neurological symptoms for neurological evaluation. Report was given to [facility]. Vitals and labs wnl, except for leukocytosis this morning that is steroid induced after receiving solumedrol yesterday. Otherwise no fevers, chills, or other signs of infection. Pt in stable condition to be transferred to higher level of care facility. Patient Disposition: OTHER Condition: Stable Health Concerns: Post Hospitalization: new medications and changes needed to prevent readmission or further decline. Pt educated and given instructions on all concerns. Plan of Treatment: Continue with present treatment and follow up plan. Pt is to keep follow up appointment as instructed and take medications as ordered. Prescriptions: No Action atorvastatin 40 mg Tablet 40 mg PO QHS RF: 0 ibuprofen 800 mg Tablet 800 mg PO Q8H PRNRF: 0 metolazone 5 mg Tablet 5 mg PO ONCE RF: 0 furosemide 40 mg Tablet 40 mg PO QAM PRNRF: 0 potassium chloride 10 mEq Capsule, Extended Release 10 meq PO DAILY RF: 0 spironolactone 25 mg Tablet 25 mg PO DAILY RF: 0 lisinopril 10 mg Tablet 10 mg PO DAILY RF: 0 docusate sodium [Stool Softener] 100 mg Capsule 100 mg PO BID PRNRF: 0 pramipexole 1.5 mg Tablet 1.5 mg PO BID RF: 0 Follow ups/Referrals Follow ups/Referrals: NFD,None [Primary Care Provider] - 3 days Instructions Stand Alone Forms: Excuse From Work or School, Precautions for COVID19, Patient Portal, Social Distancing
[2020-10-18] MEDS ORDERED: TYLENOL 325 MG TAB PO PRN (18:53)
[2020-10-18] MEDS: SNACK - Diabetic Appropriate PO SCH (19:26)
[2020-10-18] MEDS: LIPITOR TAB 80 MG PO SCH (20:27)
[2020-10-18 20:53] VITALS: BP 132/72
== END 2020-10-18 22:10 | disposition short-term general hospital (02) ==
LOC: OBS 11:08 → ER 11:08 → OBS 14:52 → MED/SURG 10-17 13:18
PROVIDERS: ADMIT Family Medicine; ATTEND Family Medicine
DX: R47.81 Slurred speech; Z20.822 Contact with and (suspected) exposure to COVID-19; G45.9 Transient cerebral ischemic attack, unspecified; K59.09 Other constipation; R51.9 Headache, unspecified; M62.81 Muscle weakness (generalized); E78.5 Hyperlipidemia, unspecified; I10 Essential (primary) hypertension